=== PATIENT | male | born 1990 | race Caucasian/White ===

== ENCOUNTER 2018-02-12 22:30 | Emergency (ER) | payer OTHER ==
[~2018-02-12] VITALS: Ht 180.3 cm; Wt 52.8 kg
[2018-02-12 22:35] VITALS: TEMP 36.6; Ht 180.3 cm; Wt 52.8 kg
[2018-02-13] MEDS ORDERED: NORCO 5/325MG HOME PACK PO ONE
[2018-02-13] MEDS ORDERED: HYDR-5688 PO (00:15)
[2018-02-13 00:16] VITALS: BP 128/80; PULSE 95; O2SAT 95
--- NOTE | 2018-02-13 00:17 | EMERGENCY ROOM VISIT NOTE ---
History First contact with patient: 22:49 Chief Complaint: LEG PAIN,LEG INJURY Stated Complaint: ANKLE AND KNEE PAIN - R History of Present Illness The patient is a 27 year old male who presents to the Emergency Room with complaints of right leg pain after sustaining an injury on a trampoline this past weekend. The patient landed on his right leg in an awkward position. He felt intense pain in his knee. The patient has not taken anything over-the- counter for pain. He is also experiencing pain in the ankle. He describes the pain as a dull ache. He denies any previous injury to the right knee or ankle. Review of Systems 6 system review negative. Please see pertinent positives in the history of present illness section. Past Medical/Surgical History Otherwise healthy Social History Smoking Status: Current Every Day Smoker Alcohol Use: occasionally Occupation Status: employed Current/Historical Medications Scheduled PRN Hydrocodone/Acetaminophen 5MG/325MG ([place] 5MG/325MG), 1-2 TABLET PO Q4H PRN for Pain Physical Exam Vital Signs Date Time Temp Pulse Resp B/P (MAP) Pulse Ox O2 Delivery O2 Flow Rate FiO2 02/13/18 00:16 95 17 128/80 95 Room Air 02/12/18 22:35 36.6 101 18 133/82 94 Room Air Physical Exam VITALS: Vitals are noted on the nurse's note and reviewed by myself. Vital signs stable. GENERAL: 27-year-old male, in no acute distress, nondiaphoretic, well-developed well-nourished. SKIN: The skin was without rashes, erythema, edema, or bruising. HEAD: Normocephalic atraumatic. EYES: Conjunctivae without injection, sclerae without icterus. Extraocular movements intact. NECK: Supple without nuchal rigidity. No JVD. MUSCULOSKELETAL: RLE: Mild edema noted over the right knee. Tenderness to palpation over the popliteal fossa. No joint line tenderness noted. No ligamentous instability noted. Pain with flexion of the knee. No significant pain with valgus or varus stress. Mild tenderness over the right lateral malleolus. No ligamentous instability of the ankle appreciated. DP pulse +2. Capillary refill in the toes is less than 2 seconds. Difficulty with dorsiflexion and plantar flexion. NEURO: Patient was alert and oriented to person place and time. Normal sensation to touch. No focal neurological deficits. Medical Decision & Procedures ER Provider Diagnostic Interpretation: Imaging was performed and reviewed by myself Right knee x-ray No acute fracture noted Right ankle x-ray No acute fracture noted Medications Administered Medications (Trade) Dose Ordered Sig/Yeimi Route Start Time Stop Time Status Last Admin Dose Admin Acetaminophen/ Hydrocodone Bitart ([place] 5/325mg Home Pack) 1 [facility] UD ONCE PO 02/13/18 00:00 02/13/18 00:01 DC 02/13/18 00:09 1 [facility] ED Course The patient was seen and examined He declined pain medication Imaging was performed and personally reviewed The findings were discussed with the patient. He voiced understanding, and was comfortable being discharged home He was put in a knee immobilizer and instructed on the use of crutches He was given a home pack of [place] Discharge instructions were reviewed, and he was discharged in good condition Medical Decision Differential diagnosis: Contusion, ligamentous injury, fracture, effusion, sprain This patient is a 27-year-old male that presents to the emergency department with a main complaint of right knee pain after landing on it wrong on a trampoline. On exam, he had some swelling of the right knee. He was neurovascularly intact. Imaging was personally reviewed. No acute fractures are noted. I am concerned that he likely has a sprain versus a ligamentous injury of the right knee. The patient was put in a knee immobilizer and instructed on the use of crutches. He was given a short course of narcotics to take in addition to ibuprofen for pain. If there is no improvement in the next 7 days, he will follow-up with orthopedics for further evaluation. He agreed to return with any worsening symptoms. This chart was completed in part utilizing [employer] Voice Recognition software. Attempts were made to minimize the grammatical errors, random word insertions, pronoun errors and incomplete sentences. Any formal questions or concerns about the content, text or information contained within the body of this dictation should be directly addressed to the provider for clarification. Impression Primary Impression: Knee injury Departure Information Dispostion Home / Self-Care Condition GOOD Prescriptions Hydrocodone/Acetaminophen 5MG/325MG ([place] 5MG/325MG) Tab 1-2 TABLET PO Q4H Y for Pain, #15 TAB For Initial Treatment Prov: Ana Kay PA-C 02/13/18 Referrals No Doctor, Assigned (PCP) Terry Santos MD Patient Instructions My [facility] Additional Instructions You had been evaluated in the emergency department for right leg pain. Please apply ice for 20 minute intervals and elevate the leg as much as possible especially over the next 48 hours Use the knee immobilizer for support. Use crutches while the knee is still painful. Minimal weightbearing on the right leg. Ibuprofen 600 mg every 6 hours [place] 1-2 tabs every 4 hours for severe pain. Do not drink alcohol or drive while taking this medication. This may be taken with ibuprofen, but avoid Tylenol. If there is no improvement in the next 5-7 days, please follow-up with your primary care physician or an orthopedic doctor a number has been provided. Please do not hesitate to return to the emergency department with any new, worsening or concerning symptoms It was a pleasure participating in your care dinorah
--- NOTE | 2018-02-13 06:48 | DIAGNOSTIC IMAGING REPORT ---
R KNEE 3 VIEWS CLINICAL HISTORY: R knee pain COMPARISON: None FINDINGS: Alignment of the right knee is anatomic. No fracture or osseous lesion is identified. Joint spaces are preserved. No joint effusion is identified. IMPRESSION: No acute fracture or joint effusion of the right knee. Electronically signed by: Reid Jiménez M.D. 02/13/2018 6:46 AM Dictated Date/Time: 02/13/2018 6:45 AM
--- NOTE | 2018-02-13 06:49 | DIAGNOSTIC IMAGING REPORT ---
R ANKLE MIN 3 VIEWS ROUTINE CLINICAL HISTORY: R lateral ankle pain COMPARISON: None FINDINGS: Alignment of the right ankle is anatomic. Talar dome is intact. There is no acute fracture. Joint spaces are preserved. IMPRESSION: No acute fracture or dislocation of the right ankle. Electronically signed by: Reid Jiménez M.D. 02/13/2018 6:47 AM Dictated Date/Time: 02/13/2018 6:47 AM
== END 2018-02-13 00:33 | disposition home or self-care (01) ==
LOC: C.EDB 22:31
DX: M79.604 Pain in right leg (principal); W19.XXXA Unspecified fall, initial encounter; Y92.89 Other specified places as the place of occurrence of the external cause; Y93.44 Activity, trampolining; F17.210 Nicotine dependence, cigarettes, uncomplicated